=== PATIENT | female | born 1950 | race Caucasian/White ===

== ENCOUNTER 2023-01-25 16:33 | Emergency (ER) | payer MEDICARE, OTHER ==
[2023-01-25] MEDS ORDERED: Aspirin 81 MG Tab.Chew PO ONE (17:04)
[2023-01-25 17:09] LABS: BASOPHILS PERCENT AUTO 0.5 % (0.0-1.0); EOSINOPHILS PERCENT AUTO 4.6 % (1.0-3.0); HEMATOCRIT 36.5 % (37.0-47.0); HEMOGLOBIN 11.9 g/dL (12.0-16.0); LYMPHOCYTES PERCENT AUTO 26.2 % (20.5-50.1); MEAN CORPUSCULAR HEMOGLOBIN 30.4 pg (27.0-34.0); MEAN CORPUSCULAR HGB CONC 32.6 g/dL (33.0-35.0); MEAN CORPUSCULAR VOLUME 93.1 fL (80-100); MONOCYTES PERCENT AUTO 8.9 % (2-8); NEUTROPHILS PERCENT AUTO 59.8 % (42.2-75.2); PLATELET COUNT,PLT 191 10^3/uL (150-450); RED BLOOD CELL COUNT 3.92 10^6/uL (4.2-5.4); WHITE BLOOD CELL COUNT,WBC 6.3 10^3/uL (5.0-10.0)
[2023-01-25 17:32] LABS: ALBUMIN 3.3 g/dL (3.4-5.0); ANION GAP 9.4 mEq/L (7-13); BILIRUBIN TOTAL 0.8 mg/dL (0.2-1.0); BUN/CREATININE RATIO 13.8 (No establ ref range); CALCIUM 9.1 mg/dL (8.5-10.1); CREATININE 1.3 mg/dL (0.55-1.02); EST CRCL DRUG DOSING (CG) 38.6 mL/min; POTASSIUM,K 3.4 mmol/L (3.5-5.1); PROTEIN TOTAL,TP 7.7 g/dL (6.4-8.2)
[2023-01-25 17:33] LABS: A/G RATIO 0.75
== END 2023-01-25 20:09 | disposition home or self-care (01) ==
LOC: DL.ED 16:33
DX: R07.89 Other chest pain (principal); R22.32 Localized swelling, mass and lump, left upper limb; R93.89 Abnormal findings on diagnostic imaging of other specified body structures
CPT/HCPCS: 36415; 80053; 83880; 84484; 85025; 93005; 93010; 93971; 99284; 99285; A9270-GY

== ENCOUNTER 2024-08-04 16:58 | Emergency (ER) | payer MEDICARE ==
[~2024-08-04 16:58] MED LIST: Sodium Chloride 0.9% 10 ML Syringe FLUSH PRN
[2024-08-04] MEDS: Sodium Chloride 0.9% 1,000 ML IV ONE (17:04)
[2024-08-04 17:09] LABS: BASOPHILS PERCENT AUTO 0.1 % (0.0-1.0); EOSINOPHILS PERCENT AUTO 0.9 % (1.0-3.0); HEMATOCRIT 40.6 % (37.0-47.0); LYMPHOCYTES PERCENT AUTO 6.4 % (20.5-50.1); MEAN CORPUSCULAR HEMOGLOBIN 30.2 pg (27.0-34.0); MEAN CORPUSCULAR VOLUME 94.2 fL (80-100); MONOCYTES PERCENT AUTO 5.8 % (2-8); NEUTROPHILS PERCENT AUTO 86.8 % (42.2-75.2); PLATELET COUNT,PLT 192 10^3/uL (150-450); RED BLOOD CELL COUNT 4.31 10^6/uL (4.2-5.4); WHITE BLOOD CELL COUNT,WBC 8.5 10^3/uL (5.0-10.0)
[2024-08-04] MEDS: Ondansetron 4 MG/2 ML SDV IVPUSH ONE (17:09)
[2024-08-04] MEDS: Magnesium Sulfate 2 GM/50 mL 2 GM in Premix Bag 1 BAG IV ONE (17:11)
[2024-08-04 17:27] LABS: A/G RATIO 0.9; ALBUMIN 3.5 g/dL (3.4-5.0); ANION GAP 12.5 mEq/L (7-13); BILIRUBIN TOTAL 0.9 mg/dL (0.2-1.0); BUN/CREATININE RATIO 16.3 (No establ ref range); C-REACTIVE PROTEIN 0.72 ng/dL (<=0.50); CALCIUM 9.8 mg/dL (8.5-10.1); CREATININE 1.84 mg/dL (0.55-1.02); EST CRCL DRUG DOSING (CG) 26.88 mL/min; POTASSIUM,K 4.5 mmol/L (3.5-5.1); PROTEIN TOTAL,TP 7.6 g/dL (6.4-8.2)
[2024-08-04] MEDS: Metoprolol Tartrate 5 MG/5 ML SDV IVPUSH ONE (17:49)
[2024-08-04] MEDS: GI Cocktail Oral Solution 30 ML PO ONE (17:49)
== END 2024-08-04 20:25 ==
LOC: DL.ED 16:58
DX: N17.9 Acute kidney failure, unspecified (principal); K52.9 Noninfective gastroenteritis and colitis, unspecified; R00.8 Other abnormalities of heart beat; Z79.899 Other long term (current) drug therapy; Z79.02 Long term (current) use of antithrombotics/antiplatelets
CPT/HCPCS: 36415; 80053; 83735; 84484; 85025; 86140; 93010; 96365; 96375; 99284; 99285; A9270; J2405; J3475; J3490; J7030

== ENCOUNTER 2024-08-09 19:23 | Inpatient (IN) | payer MEDICARE ==
[2024-08-09 19:27] LABS: BASOPHILS PERCENT AUTO 0.3 % (0.0-1.0); EOSINOPHILS PERCENT AUTO 5.7 % (1.0-3.0); HEMATOCRIT 41.8 % (37.0-47.0); HEMOGLOBIN 13.8 g/dL (12.0-16.0); LYMPHOCYTES PERCENT AUTO 21.5 % (20.5-50.1); MEAN CORPUSCULAR HEMOGLOBIN 30.3 pg (27.0-34.0); MEAN CORPUSCULAR VOLUME 91.7 fL (80-100); MONOCYTES PERCENT AUTO 8.2 % (2-8); NEUTROPHILS PERCENT AUTO 64.3 % (42.2-75.2); PLATELET COUNT,PLT 192 10^3/uL (150-450); RED BLOOD CELL COUNT 4.56 10^6/uL (4.2-5.4); WHITE BLOOD CELL COUNT,WBC 6.8 10^3/uL (5.0-10.0)
[2024-08-09 19:42] LABS: A/G RATIO 0.9; ALANINE AMINOTRANSFERASE,ALT 29 U/L (14-59); ALBUMIN 3.7 g/dL (3.4-5.0); ALKALINE PHOSPHATASE 106 U/L (46-116); ANION GAP 14.3 mEq/L (7-13); ASPARTATE AMNIOTRANSFERASE,AST 23 U/L (15-37); BILIRUBIN TOTAL 0.7 mg/dL (0.2-1.0); BLOOD UREA NITROGEN,BUN 26 mg/dL (7-18); BUN/CREATININE RATIO 13.1 (No establ ref range); CALCIUM 9.9 mg/dL (8.5-10.1); CARBON DIOXIDE,CO2 29 mmol/L (21-32); CHLORIDE,CL 104 mmol/L (98-107); CREATININE 1.98 mg/dL (0.55-1.02); GLUCOSE RANDOM 131 mg/dL (70-99); MAGNESIUM 1.9 mg/dL (1.8-2.4); POTASSIUM,K 3.3 mmol/L (3.5-5.1); PROTEIN TOTAL,TP 7.8 g/dL (6.4-8.2); SODIUM,NA 144 mmol/L (136-145)
[2024-08-09 19:48] LABS: ESTIMATED GFR 26 mL/min (>=60)
[2024-08-09] MEDS: Potassium Chloride 10 MEQ Tab.ER PO ONE (20:52)
[2024-08-09] MEDS: Lactated Ringers 1,000 ML IV ONE (20:52)
[2024-08-09 22:10] LABS: APPEARANCE,URINE SLIGHTLY CLOUDY (CLEAR); BILIRUBIN,URINE NEGATIVE (NEGATIVE); COLOR,URINE YELLOW (YELLOW); GLUCOSE,URINE NEGATIVE (NEGATIVE); KETONES,URINE NEGATIVE (NEGATIVE); LEUKOCYTE ESTERASE,URINE SMALL (NEGATIVE); NITRITE,URINE NEGATIVE (NEGATIVE); OCCULT BLOOD,URINE TRACE-INTACT (NEGATIVE); PH,URINE 5.5 (5.0-9.0); PROTEIN,URINE 30 (NEGATIVE); UROBILINOGEN,URINE 0.2 mg/dL (0.2-1.0)
[2024-08-09 22:18] LABS: BACTERIA,URINE MODERATE /HPF (0-FEW/HPF); EPITHELIAL CELLS,URINE MODERATE /HPF (NOT SEEN); WBC,URINE 30-40 /HPF (0-5/HPF)
[2024-08-10] MEDS ORDERED: Naloxone 2 MG/2 ML Syringe IVPUSH PRN (00:54)
[2024-08-10] MEDS ORDERED: HYDROmorphone 0.5 MG/0.5 ML Syringe IVPUSH PRN (00:54)
[2024-08-10] MEDS ORDERED: Acetaminophen 325 MG Tab PO PRN (00:54)
[2024-08-10] MEDS ORDERED: Melatonin 3 MG Tab PO PRN (00:54)
[2024-08-10] MEDS ORDERED: Albuterol/Ipratropium 3.0-0.5 MG/3 ML Neb Soln NEB PRN (00:54)
[2024-08-10] MEDS ORDERED: Ondansetron 4 MG/2 ML SDV IVPUSH PRN (00:54)
[2024-08-10] MEDS ORDERED: traMADol 50 MG Tab PO PRN (00:59)
[2024-08-10] MEDS ORDERED: Metoprolol Tartrate 5 MG/5 ML SDV IVPUSH PRN (01:17)
[2024-08-10] MEDS ORDERED: hydrALAZINE 20 MG/ML SDV IVPUSH PRN (01:17)
[2024-08-10] MEDS: Magnesium Sulfate 2 GM/50 mL 2 GM in Premix Bag 1 BAG IV ONE (01:25)
[2024-08-10] MEDS: Sodium Chloride 0.9% 1,000 ML IV SCH (01:29)
[2024-08-10] MEDS: Potassium Chloride 20 MEQ in Premix Bag 1 BAG IV ONE (01:32)
[2024-08-10] MEDS: VANCOmycin 125 MG Cap PO ONE (01:37)
[2024-08-10] MEDS: Saccharomyces Boulardii (Probiotic) 250 MG Cap PO STA (01:37)
[2024-08-10] MEDS: Magnesium Sulfate/D5W 1 GM/100 ML BAG IV ONE (02:42)
[2024-08-10] MEDS ORDERED: Prochlorperazine 5 MG Tab PO PRN (06:00)
[2024-08-10 06:20] LABS: BASOPHILS PERCENT AUTO 0.7 % (0.0-1.0); EOSINOPHILS PERCENT AUTO 10.4 % (1.0-3.0); HEMATOCRIT 37.9 % (37.0-47.0); HEMOGLOBIN 12.5 g/dL (12.0-16.0); LYMPHOCYTES PERCENT AUTO 27.3 % (20.5-50.1); MEAN CORPUSCULAR HEMOGLOBIN 30.7 pg (27.0-34.0); MEAN CORPUSCULAR VOLUME 93.1 fL (80-100); MONOCYTES PERCENT AUTO 9.8 % (2-8); NEUTROPHILS PERCENT AUTO 51.8 % (42.2-75.2); PLATELET COUNT,PLT 169 10^3/uL (150-450); RED BLOOD CELL COUNT 4.07 10^6/uL (4.2-5.4); WHITE BLOOD CELL COUNT,WBC 6.1 10^3/uL (5.0-10.0)
[2024-08-10] MEDS: VANCOmycin 125 MG Cap PO SCH ×2 (06:45→11:07)
[2024-08-10 06:50] LABS: A/G RATIO 0.84; ALBUMIN 3.1 g/dL (3.4-5.0); BILIRUBIN TOTAL 0.7 mg/dL (0.2-1.0); BUN/CREATININE RATIO 15.2 (No establ ref range); CALCIUM 9.6 mg/dL (8.5-10.1); CREATININE 1.65 mg/dL (0.55-1.02); EST CRCL DRUG DOSING (CG) 29.97 mL/min; MAGNESIUM 2.3 mg/dL (1.8-2.4); PROTEIN TOTAL,TP 6.8 g/dL (6.4-8.2); T4 FREE 1.32 ng/dL (0.76-1.46); TSH ULTRASENSITIVE 0.93 uIU/mL (0.36-3.74)
[2024-08-10] MEDS ORDERED: LETROZOLE 2.5 MG PO SCH (09:00)
[2024-08-10] MEDS: cefTRIAXone 1 GM Vial IVPUSH SCH (09:14)
[2024-08-10] MEDS: Enoxaparin 30 MG/0.3 ML Syringe SUBCUT SCH (09:38)
[2024-08-10] MEDS: Cholecalciferol (Vitamin D3) 25 MCG Tab PO SCH (09:38)
[2024-08-10] MEDS: Saccharomyces Boulardii (Probiotic) 250 MG Cap PO SCH (09:38)
[2024-08-10] MEDS: Metoprolol Succinate 50 MG Tab.ER PO SCH (09:39)
[2024-08-10] MEDS: Famotidine 20 MG Tab PO SCH (09:39)
[2024-08-10] MEDS: Bumetanide 1 MG Tab PO SCH (09:39)
[2024-08-10] MEDS: Potassium Chloride 10 MEQ Tab.ER PO SCH (09:41)
[2024-08-11 06:13] LABS: BASOPHILS PERCENT AUTO 0.5 % (0.0-1.0); EOSINOPHILS PERCENT AUTO 11.7 % (1.0-3.0); HEMATOCRIT 37.3 % (37.0-47.0); LYMPHOCYTES PERCENT AUTO 23.4 % (20.5-50.1); MEAN CORPUSCULAR HEMOGLOBIN 30.5 pg (27.0-34.0); MEAN CORPUSCULAR HGB CONC 32.2 g/dL (33.0-35.0); MEAN CORPUSCULAR VOLUME 94.9 fL (80-100); MONOCYTES PERCENT AUTO 10.2 % (2-8); NEUTROPHILS PERCENT AUTO 54.2 % (42.2-75.2); PLATELET COUNT,PLT 172 10^3/uL (150-450); RED BLOOD CELL COUNT 3.93 10^6/uL (4.2-5.4); WHITE BLOOD CELL COUNT,WBC 6.5 10^3/uL (5.0-10.0)
[2024-08-11 06:44] LABS: ANION GAP 11.1 mEq/L (7-13); BILIRUBIN TOTAL 0.4 mg/dL (0.2-1.0); BUN/CREATININE RATIO 15.8 (No establ ref range); CALCIUM 9.3 mg/dL (8.5-10.1); CREATININE 1.46 mg/dL (0.55-1.02); EST CRCL DRUG DOSING (CG) 33.87 mL/min; MAGNESIUM 2.2 mg/dL (1.8-2.4); POTASSIUM,K 4.1 mmol/L (3.5-5.1); PROTEIN TOTAL,TP 6.7 g/dL (6.4-8.2)
[2024-08-11 06:56] LABS: A/G RATIO 0.81
[2024-08-11] MEDS: Metoprolol Succinate 25 MG Tab.ER PO SCH (09:04)
[2024-08-12 06:19] LABS: BASOPHILS PERCENT AUTO 0.6 % (0.0-1.0); EOSINOPHILS PERCENT AUTO 12.1 % (1.0-3.0); HEMATOCRIT 36.5 % (37.0-47.0); HEMOGLOBIN 11.9 g/dL (12.0-16.0); LYMPHOCYTES PERCENT AUTO 22.4 % (20.5-50.1); MEAN CORPUSCULAR HEMOGLOBIN 30.8 pg (27.0-34.0); MEAN CORPUSCULAR HGB CONC 32.6 g/dL (33.0-35.0); MEAN CORPUSCULAR VOLUME 94.6 fL (80-100); MONOCYTES PERCENT AUTO 10.7 % (2-8); NEUTROPHILS PERCENT AUTO 54.2 % (42.2-75.2); PLATELET COUNT,PLT 161 10^3/uL (150-450); RED BLOOD CELL COUNT 3.86 10^6/uL (4.2-5.4); WHITE BLOOD CELL COUNT,WBC 6.3 10^3/uL (5.0-10.0)
[2024-08-12 06:49] LABS: ANION GAP 11.9 mEq/L (7-13); BILIRUBIN TOTAL 0.5 mg/dL (0.2-1.0); BUN/CREATININE RATIO 16.7 (No establ ref range); CALCIUM 9.6 mg/dL (8.5-10.1); CREATININE 1.38 mg/dL (0.55-1.02); EST CRCL DRUG DOSING (CG) 35.83 mL/min; MAGNESIUM 2.1 mg/dL (1.8-2.4); POTASSIUM,K 3.9 mmol/L (3.5-5.1); PROTEIN TOTAL,TP 6.6 g/dL (6.4-8.2)
[2024-08-12 06:53] LABS: A/G RATIO 0.83
== END 2024-08-12 15:05 | disposition home or self-care (01) | DRG 312 ==
LOC: DL.ED 19:23 → DL.MS 23:10
PROVIDERS: ADMIT Internal Medicine; ATTEND Internal Medicine
DX: R55 Syncope and collapse (principal); A04.72 Enterocolitis due to Clostridium difficile, not specified as recurrent; I42.8 Other cardiomyopathies; N17.9 Acute kidney failure, unspecified; N39.0 Urinary tract infection, site not specified; R29.6 Repeated falls; Z66 Do not resuscitate; D64.9 Anemia, unspecified; K21.9 Gastro-esophageal reflux disease without esophagitis; I50.9 Heart failure, unspecified; I11.0 Hypertensive heart disease with heart failure; H54.7 Unspecified visual loss; W18.30XA Fall on same level, unspecified, initial encounter; T50.995A Adverse effect of other drugs, medicaments and biological substances, initial encounter; E87.6 Hypokalemia; I49.9 Cardiac arrhythmia, unspecified; E86.0 Dehydration; Z85.3 Personal history of malignant neoplasm of breast; Z90.13 Acquired absence of bilateral breasts and nipples; Z79.899 Other long term (current) drug therapy; Z86.73 Personal history of transient ischemic attack (TIA), and cerebral infarction without residual deficits; Z95.5 Presence of coronary angioplasty implant and graft
CPT/HCPCS: 36415; 70450; 71045; 72125; 80053; 81001; 83735; 83880; 84484; 85025; 87086; 93005; 96360; 99285; A9270; J7120; 82306; 84439; 84443; 93010; 99223; 99232; 99239; J0696; J1650; J3475; J3480; J7030

== ENCOUNTER 2024-08-13 21:21 | Emergency (ER) | payer MEDICARE | END 2024-08-13 23:37 | disposition home or self-care (01) | LOC: DL.ED 21:21 | DX: R42 Dizziness and giddiness (principal); I10 Essential (primary) hypertension; K21.9 Gastro-esophageal reflux disease without esophagitis; Z79.899 Other long term (current) drug therapy | CPT/HCPCS: 99283 ==